=== PATIENT | female | born 1995 | race American Indian/Alaskan Native ===

== ENCOUNTER 2016-11-08 22:58 | Emergency (ER) | payer OTHER ==
[2016-11-08 23:46] LABS: Alanine Aminotransferase 7 units/L (7-56); Albumin 4.1 g/dL (3.9-5); Albumin/Globulin Ratio 1.4 %; Alkaline Phosphatase 80 units/L (35-129); Anion Gap 17 mmol/L; Blood Urea Nitrogen 11 mg/dL (7-17); Calcium 8.7 mg/dL (8.4-10.2); Carbon Dioxide 22 mmol/L (22-30); Chloride 103.4 mmol/L (98-107); Glucose 95 mg/dL (65-100); Lipase 19 units/L (13-60); Potassium 3.8 mmol/L (3.6-5.0); Sodium 139 mmol/L (137-145); Total Protein 7.1 g/dL (6.3-8.2)
[2016-11-09] LABS: Bacteria,Urine 1+ /HPF (Negative); Bilirubin,Urine NEG (Negative); Blood,Urine NEG (Negative); Ketones,Urine TR mg/dL (Negative); Leukocyte Esterase,Urine LG (Negative); Mucus,Urine 3+ /HPF; Nitrite,Urine NEG (Negative); Protein,Urine <15 mg/dL mg/dL (Negative); Urobilinogen,Urine < 2.0 mg/dL (<2.0)
[2016-11-09 00:01] LABS: Basophils % (Auto) 0.4 % (0.0-1.8); Eosinophils % (Auto) 2.5 % (0.0-4.3); Hematocrit 29.3 % (30.3-42.9); Hemoglobin 9.4 gm/dl (10.1-14.3); Mean Corpuscular HGB Conc 32 % (30-34); Mean Corpuscular Volume 78 fl (79-97); Platelet Count 380 K/mm3 (140-440); Red Blood Count 3.75 M/mm3 (3.65-5.03); Red Cell Distribution Width 17.2 % (13.2-15.2); White Blood Count 6.7 K/mm3 (4.5-11.0)
[2016-11-09 00:12] LABS: Mean Corpuscular Hemoglobin 25 pg (28-32)
[2016-11-09] MEDS ORDERED: TORADOL IM ONE (06:35)
--- NOTE | 2016-11-09 06:35 | Emergency Department Report ---
ED Abdominal Pain HPI - General Chief Complaint: Abdominal Pain Stated Complaint: SHARP ABD PAIN Time Seen by Provider: 11/09/16 06:28 Source: patient, RN notes reviewed Mode of arrival: Ambulatory Limitations: No Limitations - History of Present Illness Initial Comments: This is a 21-year-old female. She is previously unknown to me. The patient presents to the ER with left lower quadrant abdominal pain. The pain is constant. It increases with palpation. It decreases with rest. It was no nausea, vomiting or diarrhea. There is no chest pain or shortness of breath. The patient denies irritative and obstructive urinary symptoms. The patient is sexually active with one male partner, there is no history of gonorrhea or chlamydia that she is aware of. She is concerned that her IUD may be displaced. MD Complaint: abdominal pain -: Gradual Location: LLQ Severity scale (0 -10): 6 Quality: aching Consistency: constant Improves With: rest Worsens With: movement Associated Symptoms: denies other symptoms - Related Data Previous Rx's Medication Instructions Recorded Last Taken Type Doxycycline [Vibramycin] 100 mg PO Q12HR #28 capsule 11/09/16 Unknown Rx Ibuprofen [Motrin] 600 mg PO Q8H PRN #30 tablet 11/09/16 Unknown Rx Ondansetron [Zofran Odt] 4 mg PO QID PRN #20 tab.rapdis 11/09/16 Unknown Rx Allergies Allergy/AdvReac Type Severity Reaction Status Date / Time No Known Allergies Allergy Verified 11/08/16 23:10 ED Review of Systems ROS: Stated complaint: SHARP ABD PAIN Other details as noted in HPI Constitutional: denies: fever, malaise Eyes: denies: vision change ENT: denies: epistaxis Respiratory: denies: cough Cardiovascular: denies: chest pain Gastrointestinal: abdominal pain Genitourinary: as per HPI Musculoskeletal: as per HPI Skin: as per HPI Neurological: as per HPI Psychiatric: as per HPI ED Past Medical Hx - Past Medical History Previous Medical History?: No - Surgical History Past Surgical History?: Yes Additional Surgical History: C-Sec x 2 - Social History Smoking Status: Current Every Day Smoker Substance Use Type: Alcohol - Medications Home Medications: Home Medications Medication Instructions Recorded Confirmed Last Taken Type Doxycycline [Vibramycin] 100 mg PO Q12HR #28 capsule 11/09/16 Unknown Rx Ibuprofen [Motrin] 600 mg PO Q8H PRN #30 tablet 11/09/16 Unknown Rx Ondansetron [Zofran Odt] 4 mg PO QID PRN #20 tab.rapdis 11/09/16 Unknown Rx ED Physical Exam - General Limitations: No Limitations General appearance: alert, in no apparent distress - Head Head exam: Present: atraumatic, normocephalic - Eye Eye exam: Present: normal appearance, EOMI. Absent: nystagmus - ENT ENT exam: Present: normal exam, normal orophraynx, mucous membranes moist, normal external ear exam - Neck Neck exam: Present: normal inspection, full ROM. Absent: tenderness, meningismus - Respiratory Respiratory exam: Present: normal lung sounds bilaterally. Absent: respiratory distress, wheezes, rales, rhonchi, stridor, chest wall tenderness, accessory muscle use, decreased breath sounds, prolonged expiratory - Cardiovascular Cardiovascular Exam: Present: regular rate, normal rhythm, normal heart sounds. Absent: bradycardia, tachycardia, irregular rhythm, systolic murmur, diastolic murmur, rubs, gallop - GI/Abdominal GI/Abdominal exam: Present: soft, tenderness, normal bowel sounds, other (there is no right lower quadrant tenderness. There is left lower quadrant tenderness. There is no rebound, guarding or peritoneal signs). Absent: distended, guarding, rebound, rigid, pulsatile mass - Speculum exam: Present: normal speculum exam, other (escorted by Tricia Aguirre ) Bi-manual exam: Present: normal bi-manual exam, adnexal tenderness, other ( there is no cervical motion tenderness. There is no right-sided adnexal tenderness. There is left-sided adnexal tenderness. IUD strings are not visualized.). Absent: uterine enlargement, uterine tenderness - Extremities Exam Extremities exam: Present: normal inspection, full ROM, normal capillary refill. Absent: tenderness, pedal edema, joint swelling, calf tenderness - Back Exam Back exam: Present: normal inspection, full ROM. Absent: tenderness, CVA tenderness (R), CVA tenderness (L), muscle spasm, paraspinal tenderness, vertebral tenderness - Neurological Exam Neurological exam: Present: alert, oriented X3, normal gait, other (Extraocular movements intact. Tongue midline. No facial droop. Facial sensation intact to light touch in the V1, V2, V3 distribution bilaterally. 5 and 5 strength in 4 extremities.. Sensation is intact to light touch in 4 extremities.). Absent : motor sensory deficit - Psychiatric Psychiatric exam: Present: normal affect, normal mood - Skin Skin exam: Present: warm, dry, intact, normal color. Absent: rash ED Course Vital Signs 11/08/16 11/09/16 11/09/16 23:00 05:42 05:50 Temperature 98.2 F Pulse Rate 64 Respiratory 16 Rate Blood Pressure 106/69 106/69 Blood Pressure 98/41 [Right] O2 Sat by Pulse 97 100 89 Oximetry 11/09/16 11/09/16 11/09/16 05:51 06:00 06:10 Temperature Pulse Rate 50 L Respiratory 17 Rate Blood Pressure 104/64 104/64 Blood Pressure 106/69 [Right] O2 Sat by Pulse 100 98 85 Oximetry 11/09/16 11/09/16 11/09/16 06:20 06:30 07:39 Temperature Pulse Rate Respiratory Rate Blood Pressure 104/64 104/64 96/59 Blood Pressure [Right] O2 Sat by Pulse 98 100 98 Oximetry 11/09/16 11/09/16 11/09/16 07:40 07:50 08:00 Temperature Pulse Rate Respiratory Rate Blood Pressure 96/59 96/59 92/58 Blood Pressure [Right] O2 Sat by Pulse 99 97 95 Oximetry 11/09/16 11/09/16 11/09/16 08:10 08:20 08:30 Temperature Pulse Rate Respiratory Rate Blood Pressure 92/58 92/58 92/58 Blood Pressure [Right] O2 Sat by Pulse 95 95 98 Oximetry 11/09/16 08:40 Temperature Pulse Rate Respiratory Rate Blood Pressure 92/58 Blood Pressure [Right] O2 Sat by Pulse 97 Oximetry - Reevaluation(s) Reevaluation #1: 11/09/16 07:45 Differential diagnosis: Pelvic inflammatory disease, ovarian cyst, misplaced intrauterine device Assessment and plan: 20-year-old female with left lower quadrant pain. She has left adnexal tenderness. She has left lower quadrant tenderness. Urinalysis is appreciated. The patient has no irritative or obstructive urinary symptoms. Possible PID. Pelvic ultrasound performed and results are pending. Patient' s pain is treated. Reevaluation #2: 11/09/16 08:27 Patient resting comfortably. Belly soft on repeat examination. Ultrasound suggests benign complex ovarian cysts bilaterally, no evidence of ovarian torsion, possible inferiorly displaced intrauterine device. The case is discussed with the websphere consultant on-call, Dr. Griggs. I endorsed my concern for possible left-sided pelvic inflammatory disease. She recommended that the patient follow up with an outpatient websphere consultant, and she agreed with ceftriaxone and doxycycline. The plan of care was discussed with the patient, who verbalized understanding. The patient will be discharged at this time with pain medication, nausea medication, antibiotics. Return precautions are reviewed. ED Medical Decision Making - Lab Data Result diagrams: 11/08/16 23:13 11/08/16 23:13 Vital Signs 11/08/16 11/09/16 11/09/16 23:00 05:42 05:50 Temperature 98.2 F Pulse Rate 64 Respiratory 16 Rate Blood Pressure 106/69 106/69 Blood Pressure 98/41 [Right] O2 Sat by Pulse 97 100 89 Oximetry 11/09/16 11/09/16 11/09/16 05:51 06:00 06:10 Temperature Pulse Rate 50 L Respiratory 17 Rate Blood Pressure 104/64 104/64 Blood Pressure 106/69 [Right] O2 Sat by Pulse 100 98 85 Oximetry 11/09/16 11/09/16 06:20 06:30 Temperature Pulse Rate Respiratory Rate Blood Pressure 104/64 104/64 Blood Pressure [Right] O2 Sat by Pulse 98 100 Oximetry Labs 11/08/16 11/08/16 11/08/16 23:13 23:13 23:13 WBC 6.7 RBC 3.75 Hgb 9.4 L Hct 29.3 L MCV 78 L MCH 25 L MCHC 32 RDW 17.2 H Plt Count 380 Lymph % (Auto) 40.2 H [place] % (Auto) 11.2 H Eos % (Auto) 2.5 Baso % (Auto) 0.4 Lymph # 2.7 [place] # 0.8 Eos # 0.2 Baso # 0.0 Seg Neutrophils % 45.7 Seg Neutrophils # 3.1 Sodium 139 Potassium 3.8 Chloride 103.4 Carbon Dioxide 22 Anion Gap 17 BUN 11 Creatinine 0.5 L Estimated GFR > 60 BUN/Creatinine Ratio 22.00 Glucose 95 Calcium 8.7 Total Bilirubin 0.20 AST 13 ALT 7 Alkaline Phosphatase 80 Total Protein 7.1 Albumin 4.1 Albumin/Globulin Ratio 1.4 Lipase 19 HCG, Qual Negative Urine Color Urine Turbidity Urine pH Ur Specific [place] Urine Protein Urine Glucose (UA) Urine Ketones Urine Blood Urine Nitrite Urine Bilirubin Urine Urobilinogen Ur Leukocyte Esterase Urine WBC (Auto) Urine RBC (Auto) U Epithel Cells (Auto) Urine Bacteria (Auto) Urine Mucus 11/08/16 Unknown WBC RBC Hgb Hct MCV MCH MCHC RDW Plt Count Lymph % (Auto) [place] % (Auto) Eos % (Auto) Baso % (Auto) Lymph # [place] # Eos # Baso # Seg Neutrophils % Seg Neutrophils # Sodium Potassium Chloride Carbon Dioxide Anion Gap BUN Creatinine Estimated GFR BUN/Creatinine Ratio Glucose Calcium Total Bilirubin AST ALT Alkaline Phosphatase Total Protein Albumin Albumin/Globulin Ratio Lipase HCG, Qual Urine Color Yellow Urine Turbidity Slightly-cloudy Urine pH 5.0 Ur Specific [place] 1.029 Urine Protein <15 mg/dl Urine Glucose (UA) Neg Urine Ketones Tr Urine Blood Neg Urine Nitrite Neg Urine Bilirubin Neg Urine Urobilinogen < 2.0 Ur Leukocyte Esterase Lg Urine WBC (Auto) 69.0 H Urine RBC (Auto) 6.0 U Epithel Cells (Auto) 13.0 Urine Bacteria (Auto) 1+ Urine Mucus 3+ - Radiology Data Radiology results: report reviewed, image reviewed Transvaginal ultrasound demonstrates no evidence of ovarian torsion. Complex cysts noted to the bilateral ovaries. There is an inferiorly displaced intrauterine device. Critical care attestation.: If time is entered above; I have spent that time in minutes in the direct care of this critically ill patient, excluding procedure time. ED Disposition Clinical Impression: Pelvic pain Disposition: [id number] TO HOME OR SELFCARE Is pt being admited?: No Does the pt Need Aspirin: No Condition: Stable Instructions: Pelvic Inflammatory Disease (ED) Additional Instructions: As we discussed, your laboratory studies appeared to be within normal limits. Urinalysis was suggestive but not diagnostic of chlamydia. Pelvic ultrasound suggests a displaced intrauterine device. Given all this, you'll be treated empirically for disease called pelvic inflammatory disease. We typically treat young females with unexplained lower abdominal pain to protect your ability to have children safely in the future. Cultures were sent today, and results will be available next 3-5 days. Please have your primary care doctor call the medical records department to obtain your culture results. Take the antibiotic therapy as directed. Take the nausea medication and pain medication as directed. I recommend outpatient testing for sexually transmitted diseases, including hepatitis, syphilis and HIV. I also recommend that you abstain from sexual activity until you have completed her antibiotic therapy, a physician states that it is safe for you to resume sexual activity, and any partners that you have been sexually active with have been tested/treated/evaluated for sexual transmitted diseases. Please follow-up with physician within 3-5 days. I recommend that you return to the ER right away with worsening pain, migration of pain, intractable nausea/vomiting, inability tolerate liquid feeds. Avoid exposure to the sun, the doxycycline can cause a skin rash. When taking the doxycycline and ibuprofen for pain, make certain to take it with food. Prescriptions: Doxycycline [Vibramycin] 100 mg PO Q12HR #28 capsule Ibuprofen [Motrin] 600 mg PO Q8H PRN #30 tablet PRN Reason: Pain Ondansetron [Zofran Odt] 4 mg PO QID PRN #20 tab.rapdis PRN Reason: Nausea Referrals: PRIMARY CAREMD [Primary Care Provider] - 3-5 Days [facility] [Provider Group] - 3-5 Days [facility] [Provider Group[facility] - 3-5 Days [facility] [Provider Group] - 3-5 Days
--- NOTE | 2016-11-09 07:45 | Ultrasound Report ---
FINAL REPORT PROCEDURE: US PELVIS DUPLEX DOPPLER COMP TECHNIQUE: Transabdominal grayscale and color imaging as well as duplex Doppler of the pelvis was performed. HISTORY: left pelvic pain COMPARISON: None FINDINGS: There is no free fluid. There is an IUD in place. The uterus measures 10.5 x 4.6 x 6.1 centimeters. No ovarian lesions were seen transabdominally. IMPRESSION: No free fluid. Please see transvaginal study presently performed for further evaluation.
--- NOTE | 2016-11-09 07:50 | Ultrasound Report ---
FINAL REPORT PROCEDURE: US TRANSVAGINAL TECHNIQUE: Transvaginal grayscale and color imaging as well as duplex Doppler of the pelvis was performed. HISTORY: left pelvic pain COMPARISON: None FINDINGS: The endometrial stripe measures 1.6 centimeters in AP diameter. There is an IUD within the lower uterine segment 4.3 centimeters from the fundus. There is no free fluid. The left ovary measures 2.9 x 1.6 x 2.7 centimeters and contains a 1.5 x 1.1 x 0.8 centimeter complex cyst. There is normal blood flow to the left ovary. Right ovary measures 3.2 x 1.6 x 1.9 centimeters and contains 2 cysts with internal echoes 0.9 and 1.4 centimeters respectively. There is normal blood flow to the right ovary. IMPRESSION: Suspect benign complex cysts of both ovaries largest 1.8 centimeters on the left. No ovarian torsion. 1.6 centimeter thick endometrial stripe. Correlate with phase of menstrual cycle. IUD in place as described. Correlate for adequate placement.
[2016-11-09] MEDS ORDERED: VIBRAMYCIN PO ONE (08:08)
[2016-11-09] MEDS ORDERED: XYLOCAINE 1% MPF 5 mL INFILTRATI ONE (08:08)
[2016-11-09] MEDS ORDERED: ROCEPHIN IM ONE (08:08)
[2016-11-09 08:59] VITALS: BP 92/58
== END 2016-11-09 09:13 | disposition home or self-care (01) ==
LOC: ED 22:58
DX: R10.2 Pelvic and perineal pain (principal); F17.210 Nicotine dependence, cigarettes, uncomplicated
CPT/HCPCS: 36415; 76830; 80053; 81001; 83690; 84703; 85025; 87210; 87591; 93975; 96372; 99284; J0696; J1885